=== PATIENT | female | born 1980 | race African-American/Black ===

== ENCOUNTER 2019-05-05 13:16 | Outpatient (CLI) | payer BC, SELFPAY ==
[2019-05-05 13:50] LABS: Hematocrit 40.5 % (37.0-47.0); Hemoglobin 13.2 g/dL (12.0-15.0)
== END 2019-05-05 13:17 | disposition home or self-care (01) ==
LOC: ANHSURGERY 13:18
PROVIDERS: PCP Internal Medicine; Visit Provider Obstetrics & Gynecology
DX: N93.9 Abnormal uterine and vaginal bleeding, unspecified (principal)
CPT/HCPCS: 36415; 85014; 85018

== ENCOUNTER 2019-05-13 01:06 | Day surgery (SDC) | payer BC, SELFPAY ==
[2019-05-02 09:58] VITALS: BMI 27.4
--- NOTE | 2019-05-11 08:39 | PM.IMHP ---
H&P: HPI History of Present Illness Chief complaint: Heavy Bleeding Narrative: Emerald Gracia is a 38 year old female 3 para 2 who is admitted for hysteroscopy dilatation curettage and Rocio ablation. She has excessive heavy bleeding. She has had negative STD testing. She is status post tubal ligation. Risks and benefits of this procedure reviewed including but not exclusive of , aspiration pneumonia, bleeding, transfusion, infection, perforation injury to bowel, bladder, or ureters, with need for laparotomy she is risk understanding. She had all questions answered. She had all questions answered. She asked to proceed Review of Systems Review of Systems: All systems reviewed & are unremarkable except as noted in HPI and below Meds Home Medications and Allergies Home Medications Medication Instructions Recorded Confirmed Type cyanocobalamin (vitamin B-12) 1,000 mcg PO 3XW 05/02/19 05/02/19 History [Vitamin B-12] Allergies Allergy/AdvReac Type Severity Reaction Status Date / Time No Known Allergies Allergy Unknown Verified 05/02/19 09:58 Exam Const: General: no acute distress Eyes: General: appearance normal, both eyes and all related structures Neck: Neck: supple and no JVD Thyroid: thyroid normal Resp: Effort & Inspection: normal respiratory effort Auscultation: clear to auscultation bilaterally Cardio: Rate: regular rate Rhythm: regular rhythm GI: Inspection: non-distended GI Palp: Yes Soft to palpation, No Tenderness to palpation present (GI) and No Guarding due to palpation present (GI) Auscultation: normal bowel sounds : General: Yes bladder normal to palpation External Female Exam: normal external appearance Speculum Exam - Vagina: normal vaginal discharge and No vaginal bleeding Speculum Exam - Cervix: nontender Bimanual exam- vagina & uterus: bladder normal to palpation and No Cervical tenderness present OB/external & speculum: No vaginal bleeding Skin: General skin exam: no rashes or lesions noted Extrem: General: normal to inspection and no edema Psych: Mental Status: mental status grossly normal Affect: normal affect Assessment and Plan Additional Plan impression: Excessive heavy bleeding in a patient status post tubal ligation Plan, hysteroscopy, dilatation curettage, but nerve ablation
[2019-05-13] MEDS: LACTATED RINGERS 1,000 ML 30 ML IV CONT (06:40)
[2019-05-13 06:55] VITALS: BP 117/82; PULSE 62; RESP 18; TEMP 36.1; O2SAT 99
--- NOTE | 2019-05-13 06:57 | WPDHPUPDATE1 ---
History and Physical Update Update Date/Time: 05/13/19 06:57 History and Physical has been reviewed, including an updated exam of the patient. There are NO changes in the patient's condition. Risks, benefits, and alternatives have been discussed and questions answered. Patient agrees to proceed with procedure.
--- NOTE | 2019-05-13 07:01 | P.PNAN_ITS ---
Anes - Initial Pre Proc Eval Procedure: Operation Date: 05/13/19 07:30 Proposed Procedures p Hysteroscopy, Dilation and Curettage, Rocio Endometrial Ablation - Calixto Hand MD Date/Time: 05/13/19 07:01 Surgeon: Calixto Hand MD Pre Op Diagnosis: Heavy Bleeding Patient Data Age: 38 Gender: F Height: 1.57 m Weight: 70 kg Last Vital Signs Temp 36.1 C L 05/13/19 06:55 Pulse 62 05/13/19 06:55 Resp 18 05/13/19 06:55 BP 117/82 05/13/19 06:55 Pulse Ox 99 05/13/19 06:55 Allergies Allergy/AdvReac Type Severity Reaction Status Date / Time No Known Allergies Allergy Unknown Verified 05/02/19 09:58 Home Medications Medication Instructions Recorded Confirmed Type cyanocobalamin (vitamin B-12) 1,000 mcg PO 3XW 05/02/19 05/02/19 History [Vitamin B-12] hydrocodone-acetaminophen [[place]] 1 tablet PO Q4H PRN #20 tablet 05/13/19 Rx Patient hx anesthesia problems: none Family hx anesthesia problems: none Anes - Eval Final PreProcedure Day of Procedure 05/13/19 07:01 Patient weight: overweight Heart: regular rate and rhythm Lungs: clear to auscultation and normal air movement Airway: Mallampati scale class II Neurological: alert and oriented Last oral intake: >/= 8 hours ASA classification: II Emergent: no Anesthetic plan: proceed Anesthesia type and monitoring: general GIVS Informed Consent: The patient's anesthetic plan and its attendant risks and benefits were discussed with the patient/family/POA. Questions were solicited and answers provided to the satisfaction of the patient/family/POA.
--- NOTE | 2019-05-13 07:18 | WPDHPUPDATE1 ---
History and Physical Update Update Date/Time: 05/13/19 07:18 History and Physical has been reviewed, including an updated exam of the patient. There are NO changes in the patient's condition. Risks, benefits, and alternatives have been discussed and questions answered. Patient agrees to proceed with procedure. should read Rocio ablation
[2019-05-13] MEDS: KETOROLAC 30 MG/ML VIAL (*BKC) IV PUSH (08:02)
--- NOTE | 2019-05-13 08:06 | PM.PROC ---
Procedure Note - Detailed Date of procedure: 05/13/19 Pre-op diagnosis: Heavy Bleeding Surgeon: Calixto Hand MD Postop diagnosis: Heavy bleeding refractory to medical therapy Procedure: Hysteroscopy, dilatation curettage, endometrial ablation with renny instrument Anesthesia: IV sedation and local EBL: 5cc Findings: Thick endometrial tissue. No other pathologic findings Complications: None description of procedure: The patient was prepped and draped in the normal sterile fashion and placed in the dorsal lithotomy position. Under excellent IV sedation weighted speculum was placed in posterior fornix of vagina. Anterior lip of the cervix grasped with single-tooth tenaculum 2.5cc of 1% xylocaine anesthesia then placed 2 4 and 8:00 a.m. respectively in the cervix. Uterus sounded to 8cm. Serial dilatation with fragmented dilators performed following patches of the 5mm visualizing hysteroscope. Normal saline was used as visualizing medium. Thick endometrial tissue was seen each fallopian tube os could be seen. No abnormalities were seen short of thickened tissue. The uterus was then scraped over the entire 360? until a good grating sound was heard. The ablated instrument was placed in the uterus. It was burned 120seconds. It was removed. The hysteroscope was inserted and a good burn was noted. Photo documentation was undertaken. The lower sites all removed. The patient was awakened. All sponge, needle, instrument counts were correct. There were no immediate complications
[2019-05-13 08:09] VITALS: BP 129/83; PULSE 83; RESP 14; O2SAT 100
[2019-05-13 08:30] VITALS: BP 127/74; PULSE 76; RESP 14
[2019-05-13 09:00] VITALS: BP 135/93; PULSE 59; RESP 14
== END 2019-05-13 09:05 | disposition home or self-care (01) ==
PROVIDERS: PCP Internal Medicine; Visit Provider Obstetrics & Gynecology
PROC: 0U5B8ZZ Destruction of Endometrium, Via Natural or Artificial Opening Endoscopic (ICD-10-PCS; CPT 58563; principal; 2019-05-13 07:30)
DX: N87.1 Moderate cervical dysplasia (principal)
CPT/HCPCS: 58563; 88305; A9270; J1100; J1885; J2250; J2405; J2704; J3010; J7030; J7120

== ENCOUNTER 2019-06-03 00:30 | Day surgery (SDC) | payer BC, SELFPAY ==
[2019-05-26 14:47] VITALS: BMI 28.3
--- NOTE | 2019-06-01 07:43 | PM.IMHP ---
H&P: HPI History of Present Illness Chief complaint: abn uterine bleeding, higrade dysplasia Narrative: Emerald Gracia is a 38 year old female Was admitted for robotic total vaginal hysterectomy and bilateral salpingectomy. She has markedly enlarged uterus with multiple fibroids. She has been bleeding for 9 weeks this is continued despite medical therapy. Risks and benefits of procedure reviewed Review of Systems Review of Systems: All systems reviewed & are unremarkable except as noted in HPI and below Meds Home Medications and Allergies Home Medications Medication Instructions Recorded Confirmed Type cyanocobalamin (vitamin B-12) 1,000 mcg PO 3XW 05/02/19 05/26/19 History [Vitamin B-12] Allergies Allergy/AdvReac Type Severity Reaction Status Date / Time No Known Allergies Allergy Unknown Verified 05/26/19 14:47 Exam Const: General: no acute distress Eyes: General: appearance normal, both eyes and all related structures Neck: Neck: supple and no JVD Thyroid: thyroid normal Resp: Effort & Inspection: normal respiratory effort Auscultation: clear to auscultation bilaterally Cardio: Rate: regular rate Rhythm: regular rhythm GI: Inspection: non-distended GI Palp: Yes Soft to palpation, No Tenderness to palpation present (GI) and No Guarding due to palpation present (GI) Auscultation: normal bowel sounds : General: Yes other ( uterus was 12 weeks in size.) Skin: General skin exam: no rashes or lesions noted Extrem: General: normal to inspection and no edema Psych: Mental Status: mental status grossly normal Affect: normal affect Assessment and Plan Additional Plan Impression: Symptomatic uterine fibroids a patient with continuous bleeding despite medical therapy Plan: Robotic total vaginal hyst and bilateral salpingectomies
[2019-06-03] VITALS (15 sets, daily range): BP systolic 108–130; BP diastolic 62–76; PULSE 55–85; RESP 11–21; TEMP 36.3–37.2; O2SAT 96–100
--- NOTE | 2019-06-03 06:44 | WPDHPUPDATE1 ---
History and Physical Update Update Date/Time: 06/03/19 06:44 History and Physical has been reviewed, including an updated exam of the patient. There are NO changes in the patient's condition. Risks, benefits, and alternatives have been discussed and questions answered. Patient agrees to proceed with procedure.
--- NOTE | 2019-06-03 07:15 | P.PNAN_ITS ---
Anes - Initial Pre Proc Eval Procedure: Operation Date: 06/03/19 07:30 Proposed Procedures p Robotic Assisted Total Vaginal Hysterectomy with Bilateral Salpingectomy - Calixto Hand MD Date/Time: 06/03/19 07:15 Surgeon: Calixto Hand MD Pre Op Diagnosis: abn uterine bleeding, higrade dysplasia Patient Data Age: 38 Gender: F Height: 5 ft 2 in Weight: 70.31 kg Allergies Allergy/AdvReac Type Severity Reaction Status Date / Time No Known Allergies Allergy Unknown Verified 05/26/19 14:47 Home Medications Medication Instructions Recorded Confirmed Type cyanocobalamin (vitamin B-12) 1,000 mcg PO 3XW 05/02/19 05/26/19 History [Vitamin B-12] hydrocodone-acetaminophen [[place]] 1 tablet PO Q4H PRN #30 tablet 06/03/19 Rx Patient hx anesthesia problems: post op nausea/vomiting Family hx anesthesia problems: other (slow to awaken) Anes - Eval Final PreProcedure Day of Procedure 06/03/19 07:15 Patient weight: overweight Heart: regular rate and rhythm Lungs: clear to auscultation Airway: Mallampati scale class II Neurological: alert and oriented Last oral intake: >/= 8 hours ASA classification: II Emergent: no Anesthetic plan: proceed Anesthesia type and monitoring: general ETT and standard monitoring Informed Consent: The patient's anesthetic plan and its attendant risks and benefits were discussed with the patient/family/POA. Questions were solicited and answers provided to the satisfaction of the patient/family/POA.
[2019-06-03] MEDS: LACTATED RINGERS 1,000 ML 30 ML IV CONT ×2 (07:30→09:34)
[2019-06-03 07:45] LABS: Basophils Percent Auto 0.3 % (0.2-1.2); Eosinophils Absolute Auto 0.2 K/mm3 (0-0.3); Eosinophils Percent Auto 2.2 % (0-4.4); Hematocrit 36.4 % (37.0-47.0); Hemoglobin 11.8 g/dL (12.0-15.0); Immature Granulocyte Absolute 0.03 K/mm3 (0.00-0.031); Immature Granulocyte Percent A 0.4 % (0-0.5); Lymphocytes Absolute Auto 1.79 K/mm3 (0.9-3.2); Lymphocytes Percent Auto 24.9 % (18.3-44.2); Mean Corpuscular HGB Conc 32.4 g/dl (32-36); Mean Corpuscular Hemoglobin 29.3 pg (26-34); Mean Corpuscular Volume 90.3 fl (80-100); Mean Platelet Volume 10.6 fl (7.4-10.4); Monocytes Absolute Auto 0.6 K/mm3 (0.1-0.6); Monocytes Percent Auto 8.5 % (2.6-8.5); Neutrophils Absolute Auto 4.6 K/mm3 (1.3-6.7); Neutrophils Percent Auto 63.7 % (45.5-73.1); Platelet Count Result 268 k/mm3 (150-375); Red Blood Count 4.03 M/mm3 (4.2-5.4); Red Cell Distribution Width 12.4 % (11.5-14.5); White Blood Count 7.2 K/mm3 (4.5-10.0)
[2019-06-03] MEDS: SCOPOLAMINE 1.5 MG PATCH TRANSDERM (07:52)
[2019-06-03] MEDS: ceFAZolin 2 GM/D5W 50 ML 2 GM/50 ML BAG IVPB (07:54)
--- NOTE | 2019-06-03 09:11 | SUR.OPER ---
Ebl=50ml
--- NOTE | 2019-06-03 09:22 | PM.PROC ---
Procedure Note - Detailed Date of procedure: 06/03/19 Pre-op diagnosis: abn uterine bleeding, higrade dysplasia Surgeon: Calixto Hand MD Postop diagnosis: Abnormal uterine bleeding/high-grade dysplasia Procedure: Robotic total vaginal hysterectomy and bilateral salpingectomy Anesthesia: General endotracheal EBL: 50cc Findings: An enlarged uterus. Tubes status post tubal ligation. Normal-appearing ovaries Complications: None Description of procedure: The patient was prepped and draped in the normal sterile fashion placed in the dorsal lithotomy position. Under excellent general endotracheal anesthesia weighted speculum was placed in posterior fornix of vagina. Anterior lip of the cervix grasped with a single-tooth tenaculum. The uterus sounded to8.5cm. Serial dilatation with fragmented dilators performed. This was followed by passage of the number 6 ARAMIS and the 3. And a half cold cup. Next the 16 [place] catheter was placed. The remainder of the instruments removed. The gloves were changed. A supraumbilical incision was made. The Veress needle passed in the abdomen. Abdomen filled with CO2 gas [id number]. The 8mm trocar was advanced in the abdomen. The downside was visualized. No injury seen the patient placed in Trendelenburg. Right and left lateral quadrant incisions were made. The 8mm trocars were advanced under direct visualization assuring no injury. A right upper quadrant incision made. The 10mm trocar was advanced under direct visualization assuring no injury. The robot was docked. The console was then attended to. The left round ligament was grasped, burned, cut. Anterior bladder flap was formed by sharply dissecting the bladder clot caudally from the uterus to the opposite round ligament which was clamped, burned, cut. Next the left ovary was skeletonized from the fallopian tube. The fallopian tube was then removed. In like fashion the right fallopian tube was dissected away from the ovary the adnexal complex. Next the left utero-ovarian ligament was skeletonized to conserve the left ovary. This was clamped, burned, cut. This was brought to level the previously cut round ligament. In like fashion conserving the right ovary the utero-ovarian ligament was clamped, burned, cut and brought to the level of the previously cut round ligament there. The left cardinal and broad ligaments were then serially skeletonized down the lateral edge of the uterus clamped, burned, cut until the uterine vessels could be seen these were large and tortuous as to be expected with the uterus of the size. They were individually clamped cut and burned. This was repeated on the contralateral side by serially clamping burning and cutting the cardinal and broad ligaments to until the uterine vessels on the right could be seen these were then serially clamped, burned, cut. Blanching the uterus was seen. A colpotomy incision was made in the cervix uterus and tubes were removed through the vagina. Blood loss was estimated [id number]. The vagina was closed with continuous running 0V lock from lateral edge to lateral edge. Irrigation was undertaken to clear hemostasis was assured. The robot was undocked. The gas removed from the abdomen. The incisions were closed with 4 O Monocryl and glue. All sponge, needle, instrument counts were correct. There were no immediate complications
[2019-06-03] MEDS: HYDROMORPHONE HCL 1 MG/ML INJ 0.5 MG IV PUSH ×3 (10:05→10:35)
[2019-06-03] MEDS: ONDANSETRON INJ 4 MG/2 ML VIAL IV PUSH ×2 (10:07→18:40)
[2019-06-03] MEDS: DEXTROSE 5%/LACTATED RINGERS 1,000 ML 125 ML IV CONT ×2 (11:32→20:00)
[2019-06-03] MEDS: KETOROLAC 30 MG/ML VIAL (*BKC) IV PUSH (11:32)
--- NOTE | 2019-06-03 11:45 | PC.NURSE ---
1055-This patient, Emerald Gracia, was admitted to OB 2nd Floor Room 289-00. Patient/family oriented to hospital policies and general routines including ID bracelet, bed and alarms, visiting hours, pain management, procedures, bathroom and other care routines, personal items, smoking policy, room service/diet, and visiting hours. Valuables list has been completed. Information on how to activate the Rapid Response Team has been discussed. Patient/Family are encouraged to report perceived risks to care and to ask questions if they do not understand what they are told or what they should do.
[2019-06-03] MEDS: MORPHINE SULFATE 4 MG/ML INJ IV PUSH (13:37)
[2019-06-03] MEDS: DOCUSATE SODIUM 100 MG CAPSULE PO (17:25)
[2019-06-03] MEDS: IBUPROFEN 600 MG TABLET PO (17:25)
[2019-06-04 04:30] VITALS: BP 109/58; PULSE 76; RESP 16; TEMP 37.1
[2019-06-04] MEDS: IBUPROFEN 600 MG TABLET PO ×2 (04:38→10:14)
[2019-06-04] MEDS: SIMETHICONE 80 MG TAB.CHEW PO ×3 (04:38→15:10)
[2019-06-04 05:52] LABS: Basophils Percent Auto 0.1 % (0.2-1.2); Eosinophils Percent Auto 0.1 % (0-4.4); Hemoglobin 11.6 g/dL (12.0-15.0); Immature Granulocyte Absolute 0.07 K/mm3 (0.00-0.031); Immature Granulocyte Percent A 0.5 % (0-0.5); Lymphocytes Absolute Auto 1.43 K/mm3 (0.9-3.2); Lymphocytes Percent Auto 9.9 % (18.3-44.2); Mean Corpuscular HGB Conc 34.1 g/dl (32-36); Mean Corpuscular Hemoglobin 30.1 pg (26-34); Mean Corpuscular Volume 88.3 fl (80-100); Mean Platelet Volume 11.1 fl (7.4-10.4); Monocytes Absolute Auto 1.1 K/mm3 (0.1-0.6); Monocytes Percent Auto 7.9 % (2.6-8.5); Neutrophils Absolute Auto 11.8 K/mm3 (1.3-6.7); Neutrophils Percent Auto 81.5 % (45.5-73.1); Platelet Count Result 268 k/mm3 (150-375); Red Blood Count 3.85 M/mm3 (4.2-5.4); White Blood Count 14.5 K/mm3 (4.5-10.0)
[2019-06-04 08:30] VITALS: BP 98/49; PULSE 63; RESP 16; TEMP 36.8; O2SAT 100
[2019-06-04] MEDS: ENOXAPARIN 40 MG/0.4 ML SYRINGE SUB-Q (08:47)
[2019-06-04] MEDS: DOCUSATE SODIUM 100 MG CAPSULE PO (08:47)
--- NOTE | 2019-06-04 10:03 | WPDANESPN ---
Anes - Prog Note Post-Op Date/Time: 06/04/19 10:03 Cardiovascular status: normal Respiratory status: normal Airway patency: baseline Mental status: baseline Post-Op hydration status: normal Vital Signs: Last Vital Signs Temp 37.1 C 06/04/19 04:30 Pulse 76 06/04/19 04:30 Resp 16 06/04/19 04:30 BP 109/58 L 06/04/19 04:30 Pulse Ox 100 06/03/19 14:00 I/O: Intake & Output 06/03/19 06/04/19 06/04/19 23:59 07:59 15:59 Intake Total 1540 1000 Output Total 550 2700 Balance 990 -1700 Laboratory Tests 06/04/19 04:43 06/04/19 04:43 WBC 14.5 H RBC 3.85 L Hgb 11.6 L Hct 34.0 L MCV 88.3 MCH 30.1 MCHC 34.1 RDW 12.0 Plt Count 268 MPV 11.1 H Immature Gran % (Auto) 0.5 Neut % (Auto) 81.5 H Lymph % (Auto) 9.9 L [place] % (Auto) 7.9 Eos % (Auto) 0.1 Baso % (Auto) 0.1 L Lymph # (Auto) 1.43 [place] # (Auto) 1.1 H Eos # (Auto) 0.0 Baso # (Auto) 0.0 Abs Immat Gran (auto) 0.07 H Absolute Neuts (auto) 11.8 H Absolute Nucleated RBC 0.0 Nucleated RBC % 0.0 Post-procedural complaints: none Patient Feedback: Patient satisfied with anesthetic care.
--- NOTE | 2019-06-04 11:26 | PM.GYNPNOP ---
DANCE CHOREOGRAPHER - A/P Postoperative Procedures: Procedures Operation Date: 06/03/19 07:30 Actual Procedures Side Surgeon p Robotic Assisted Total Vaginal Hysterectomy with Bilateral Salpingectomy Bilateral Calixto Hand MD A: POD#1, doing well. P: Home to f/u 2 weeks. Time Spent With Patient Time with patient: less than 15 minutes DANCE CHOREOGRAPHER- PN:Subj Post-Op Subjective Date/time seen: 06/04/19 11:26 Interval history: Pain OK. A little nauseated, but tolerating diet. Wants to go home. Voiding. Exam Psych: Other: AVSS I/O OK ABD soft, nontender. Incisions c/d/i. EXT nontender DANCE CHOREOGRAPHER - PN: Obj Data Vital Signs Vital Signs: Vital Signs - 24 hr 06/03/19 11:30 06/03/19 12:00 06/03/19 13:00 Temperature Pulse Rate 70 76 78 Respiratory Rate 16 16 16 Blood Pressure 108/66 110/62 109/70 Pulse Oximetry 100 100 100 06/03/19 14:00 06/03/19 18:42 06/03/19 23:05 Temperature 36.9 C 37.2 C 37.1 C Pulse Rate 81 85 82 Respiratory Rate 16 16 16 Blood Pressure 112/63 112/64 115/67 Pulse Oximetry 100 06/04/19 04:30 Temperature 37.1 C Pulse Rate 76 Respiratory Rate 16 Blood Pressure 109/58 L Pulse Oximetry Intake/Output Intake/Output: Intake & Output 06/01/19 06/02/19 06/03/19 06/04/19 23:59 23:59 23:59 23:59 Intake Total 1989 1000 Output Total 995 2700 Balance 995 -1700 Meds/Results Medications: Active Medications Generic Name Dose Route Start Last Admin Trade Name Freq PRN Reason Stop Dose Admin Hydrocodone Bitart/Acetaminophen 1 tab 06/03/19 10:49 06/04/19 10:15 [place] 5-325 Mg PO 1 tab Q3H PRN Administration Pain Rated 5 or Less Hydrocodone Bitart/Acetaminophen 1 tab 06/03/19 10:49 06/04/19 04:39 [place] 10-325 Mg PO 1 tab Q3H PRN Administration Pain Rated 6 or Greater Docusate Sodium 100 mg 06/03/19 17:00 06/04/19 08:47 Colace Capsule PO 100 mg BID ROMEO Administration Enoxaparin Sodium 40 mg 06/04/19 09:00 06/04/19 08:47 Lovenox SUB-Q 40 mg DAILY ROMEO Administration Ibuprofen 600 mg 06/03/19 10:49 06/04/19 10:14 Motrin PO 600 mg Q6H PRN Administration Cramping Ketorolac Tromethamine 30 mg 06/03/19 10:49 06/03/19 11:32 Toradol Inj IV PUSH 06/08/19 10:50 30 mg Q6H PRN Administration Pain Rated 4-6 Morphine Sulfate 4 mg 06/03/19 10:49 06/03/19 13:37 Morphine Sulfate Inj IV PUSH 4 mg Q4H PRN Administration Severe breakthrough pain Naloxone HCl 0.1 mg 06/03/19 10:49 Narcan IV PUSH Q2M PRN Respiratory rate less than 10 Ondansetron HCl 4 mg 06/03/19 10:49 06/03/19 18:40 Zofran Inj IV PUSH 4 mg Q6H PRN Administration Nausea And Vomiting Simethicone 80 mg 06/03/19 10:49 06/04/19 10:16 Mylicon PO 80 mg Q2H PRN Administration Gas Labs CBC & Chem 7: 06/04/19 04:43 Labs: Laboratory Results - last 24 hr 06/04/19 04:43 WBC 14.5 H RBC 3.85 L Hgb 11.6 L Hct 34.0 L MCV 88.3 MCH 30.1 MCHC 34.1 RDW 12.0 Plt Count 268 MPV 11.1 H Immature Gran % (Auto) 0.5 Neut % (Auto) 81.5 H Lymph % (Auto) 9.9 L [place] % (Auto) 7.9 Eos % (Auto) 0.1 Baso % (Auto) 0.1 L Lymph # (Auto) 1.43 [place] # (Auto) 1.1 H Eos # (Auto) 0.0 Baso # (Auto) 0.0 Abs Immat Gran (auto) 0.07 H Absolute Neuts (auto) 11.8 H Absolute Nucleated RBC 0.0 Nucleated RBC % 0.0
--- NOTE | 2019-06-04 11:27 | P.DS_ITS ---
DS: Diagnosis Admitting Diagnosis Admitting Diagnosis: Abnormal uterine and vaginal bleeding, unspecified Discharge Diagnosis (1) Menometrorrhagia: Code(s): N92.1 - Excessive and frequent menstruation with irregular cycle Status: Acute DS: Summary Time Spent with Patient Time attestation: Total time spent providing and/or coordinating discharge services: DS: Data Data Completed and Pending Pending studies at discharge: Pending at discharge 06/03/19 08:54 Surgical [PTH] Routine Labs on day of discharge: Labs from last 24 hours 06/04/19 04:43 WBC 14.5 H RBC 3.85 L Hgb 11.6 L Hct 34.0 L MCV 88.3 MCH 30.1 MCHC 34.1 RDW 12.0 Plt Count 268 MPV 11.1 H Immature Gran % (Auto) 0.5 Neut % (Auto) 81.5 H Lymph % (Auto) 9.9 L [place] % (Auto) 7.9 Eos % (Auto) 0.1 Baso % (Auto) 0.1 L Lymph # (Auto) 1.43 [place] # (Auto) 1.1 H Eos # (Auto) 0.0 Baso # (Auto) 0.0 Abs Immat Gran (auto) 0.07 H Absolute Neuts (auto) 11.8 H Absolute Nucleated RBC 0.0 Nucleated RBC % 0.0 Discharge Plan Discharge Patient Disposition: Home, Self-Care Discharge Instructions: Call or return if temperature above 100.4? F, increased abdominal pain, increased vaginal bleeding or any new problems. Stand Alone Forms: General Discharge Instructions Follow-up/Referrals: Calixto Hand MD [Physician] - (2 weeks) Discharge Medications: New hydrocodone-acetaminophen [[place]] 5-325 mg tablet 1 tablet PO Q4H PRN (Reason: pain) Qty: 30 RF: 0 No Action cyanocobalamin (vitamin B-12) [Vitamin B-12] 1,000 mcg Tablet 1,000 mcg PO 3XW RF: 0 Other Ambulatory Orders: Complete Blood Count with Diff (Routine) Timeframe: 3 Months Location: Determined by Patient Ordered By: Calixto Hand Type and Screen 14 Day (Routine) Timeframe: 3 Months Location: Determined by Patient Ordered By: Calixto Hand Primary Care Provider: Tomas Grubbs Attending physician on admission: Calixto Hand
== END 2019-06-04 15:12 | disposition home or self-care (01) ==
LOC: ANHSURGERY 06:52 → ANHOB2 10:52
PROVIDERS: PCP Internal Medicine; Visit Provider Obstetrics & Gynecology
PROC: (CPT 58552; principal; 2019-06-03 07:30)
DX: N92.1 Excessive and frequent menstruation with irregular cycle (principal); N80.0 Endometriosis of uterus; N83.8 Other noninflammatory disorders of ovary, fallopian tube and broad ligament; N72 Inflammatory disease of cervix uteri
CPT/HCPCS: 58552; S2900; 36415; 85025; 86850; 86900; 86901; 88307; 99199; A9270; J0131; J0690; J1100; J1170; J1650; J1885; J2250; J2270; J2405; J2704; J3010; J7030; J7120; J7121

== ENCOUNTER 2019-11-30 09:09 | Outpatient (CLI) | payer BC, SELFPAY ==
[2019-11-30 09:22] LABS: Basophils Percent Auto 0.4 % (0.2-1.2); Eosinophils Absolute Auto 0.2 K/mm3 (0-0.3); Eosinophils Percent Auto 2.2 % (0-4.4); Hematocrit 38.4 % (37.0-47.0); Hemoglobin 12.8 g/dL (12.0-15.0); Immature Granulocyte Absolute 0.03 K/mm3 (0.00-0.031); Immature Granulocyte Percent A 0.4 % (0-0.5); Lymphocytes Absolute Auto 2.18 K/mm3 (0.9-3.2); Lymphocytes Percent Auto 30.2 % (18.3-44.2); Mean Corpuscular HGB Conc 33.3 g/dl (32-36); Mean Corpuscular Hemoglobin 30.8 pg (26-34); Mean Corpuscular Volume 92.5 fl (80-100); Mean Platelet Volume 10.4 fl (7.4-10.4); Monocytes Absolute Auto 0.6 K/mm3 (0.1-0.6); Monocytes Percent Auto 8.2 % (2.6-8.5); Neutrophils Absolute Auto 4.2 K/mm3 (1.3-6.7); Neutrophils Percent Auto 58.6 % (45.5-73.1); Platelet Count Result 259 k/mm3 (150-375); Red Blood Count 4.15 M/mm3 (4.2-5.4); Red Cell Distribution Width 12.9 % (11.5-14.5); White Blood Count 7.2 K/mm3 (4.5-10.0)
[2019-11-30 09:36] LABS: Alanine Aminotransferase 20 U/L (4-35); Albumin Level 4.3 g/dL (3.5-5.1); Alkaline Phosphatase 48 U/L (38-126); Anion Gap 4 mmol/L (8-16); Aspartate Amino Transferase 31 U/L (14-36); Bilirubin,Total 1.4 mg/dL (0.2-1.3); Blood Urea Nitrogen 10 mg/dL (7-17); Calcium 9.2 mg/dL (8.4-10.2); Carbon Dioxide 28 mmol/L (22-30); Chloride 102 mmol/L (98-107); Cholesterol 198 mg/dL (0-200); Estimated Glomerular Filt Rate > 60; Glucose 79 mg/dL (65-105); HDL Direct 83 mg/dL; Sodium 134 mmol/L (137-145); Triglycerides 35 mg/dL (<150)
[2019-11-30 09:47] LABS: LDL Cholesterol Direct 92 mg/dL
== END 2019-11-30 09:10 | disposition home or self-care (01) ==
LOC: ANHLAB 09:11
PROVIDERS: PCP Internal Medicine; Visit Provider Nurse Practitioner
DX: Z13.228 Encounter for screening for other metabolic disorders (principal); Z13.220 Encounter for screening for lipoid disorders
CPT/HCPCS: 36415; 80053; 80061; 85025

== ENCOUNTER 2020-01-25 11:38 | Outpatient (CLI) | payer BC, SELFPAY ==
--- NOTE | ~2020-01-25 | MM_ITS ---
EXAMINATION: MM screening lisa BI w xiomara HISTORY: Baseline screening mammogram, family history of malignant neoplasm of the breast TECHNIQUE: Craniocaudal and mediolateral oblique 3-D tomosynthesis images were obtained and synthetic 2-D images were generated. CAD analysis was submitted and interpreted. COMPARISON: None, baseline BREAST PARENCHYMAL COMPOSITION: There are scattered areas of fibroglandular density. FINDINGS: RIGHT BREAST: There is no evidence of suspicious mass, calcification, or architectural distortion to suggest malignancy. LEFT BREAST: A mass is present in the subareolar aspect of the breast. IMPRESSION: 1. Left breast mass 2. Additional mammographic views and possible breast ultrasound are recommended. BI-RADS Category 0: Incomplete: Needs additional imaging evaluation. Reviewed, dictated and finalized at location A. EL DEPARTMENT MANAGER IMPRESSION: 1. Left breast mass 2. Additional mammographic views and possible breast ultrasound are recommended . BI-RADS Category 0: Incomplete: Needs additional imaging evaluation.
== END 2020-01-25 11:39 | disposition home or self-care (01) ==
LOC: ANHIMG 11:40
PROVIDERS: PCP Internal Medicine; Visit Provider Nurse Practitioner
DX: Z12.31 Encounter for screening mammogram for malignant neoplasm of breast (principal); R92.8 Other abnormal and inconclusive findings on diagnostic imaging of breast
CPT/HCPCS: 77063; 77067

== ENCOUNTER 2020-02-20 11:36 | Outpatient (CLI) | payer BC, SELFPAY ==
--- NOTE | ~2020-02-20 | MMUS_ITS ---
EXAMINATION: MM diagnostic lisa LT w xiomara, US breast LT limited HISTORY: Left breast mass on screening mammogram TECHNIQUE: Additional 3-D tomosynthesis images of the left breast were performed and synthetic 2-D im ages were generated. CAD analysis was submitted and interpreted. High resolution limited left breast ultrasound was performed. COMPARISON: 01/25/2020 FINDINGS: MAMMOGRAPHIC FINDINGS: There is an approximately 1.3 cm obscured, oval, equal density mass in the subareolar aspect of the b reast. There are grouped calcifications in the subareolar aspect of the breast, some of which appear to be amorphous with layering on the mediolateral view and some possibly coarse heterogeneous in morp hology. No suspicious architectural distortion is identified. ULTRASOUND: There is an approximately 1.3 x 0.9 cm cyst at the 12:00 location 2 cm from the nipple corresponding to the mammographically identified mass. Adjacent smaller subareolar cysts measuring up to 6 mm are n oted. IMPRESSION: 1. Subareolar cyst of the left breast corresponding to the abnormality identified on screening mammog kaylee. Grouped calcifications which are probably benign. 2. Recommend 6 month follow-up left diagnostic mammogram for probably benign calcifications. BI-RADS category 3, probably benign findings. Reviewed, dictated and finalized at location A. [employer] IMPRESSION: 1. Subareolar cyst of the left breast corresponding to the abnormality identifi ed on screening mammogram. Grouped calcifications which are probably benign. 2. Recommend 6 month follow-up left diagnostic mammogram for probably benign ca lcifications. BI-RADS category 3, probably benign findings.
== END 2020-02-20 11:37 | disposition home or self-care (01) ==
LOC: ANHIMG 11:36
PROVIDERS: PCP Internal Medicine; Visit Provider Nurse Practitioner
DX: N63.20 Unspecified lump in the left breast, unspecified quadrant (principal); R92.8 Other abnormal and inconclusive findings on diagnostic imaging of breast
CPT/HCPCS: 76642; 77061; 77065; G0279

== ENCOUNTER 2020-11-05 12:29 | Outpatient (CLI) | payer BC, SELFPAY ==
--- NOTE | ~2020-11-05 | MM_ITS ---
EXAMINATION: MM diagnostic lisa LT w xiomara HISTORY: Follow-up left breast calcifications TECHNIQUE: Additional 3-D tomosynthesis images of the left breast were performed and synthetic 2-D im ages were generated. CAD analysis was submitted and interpreted. COMPARISON: Comparison to multiple prior studies sequentially, with oldest reviewed study dated 01/07. BREAST PARENCHYMAL COMPOSITION: Breast composed of scattered areas of fibroglandular density. FINDINGS: There are clustered calcifications in the upper central aspect of the left breast adjacent to a mass previously characterized as a cyst by ultrasound. A few of the calcifications layer on medi al lateral view, consistent with benign milk of calcium. IMPRESSION: 1. Stable benign-appearing left breast calcifications. 2. Recommend 6 month follow-up diagnostic mammogram. BI-RADS category 3, probably benign findings. Reviewed, dictated and finalized at location A.
== END 2020-11-05 12:30 | disposition home or self-care (01) ==
LOC: ANHIMG 12:31
PROVIDERS: PCP Internal Medicine; Visit Provider Nurse Practitioner
DX: R92.8 Other abnormal and inconclusive findings on diagnostic imaging of breast (principal)
CPT/HCPCS: 77061; 77065; G0279

== ENCOUNTER 2020-12-28 10:09 | Outpatient (CLI) | payer BC, SELFPAY ==
--- NOTE | ~2020-12-28 | CT_ITS ---
EXAMINATION: CT abdomen pelvis w con DATE: 12/28/2020 10:45 INDICATION: Generalized abdominal pain. Blood in stool. TECHNIQUE: Computed tomography (CT) of the abdomen and pelvis was performed with 100 mL Omnipaque 350 intravenous contrast. Automated exposure control and iterative reconstruction technique were employe d. The dose-length product was 428.26 mGy-cm. COMPARISON: None. FINDINGS: The visualized portions of the lung bases demonstrate minimal atelectasis. A calcified left lung nodule is consistent with old granulomatous disease. There is a 4 mm nodule in right lower lobe , likely benign. No pleural effusion. The heart size is normal. No pericardial effusion. There is a 5 mm cyst in the liver. The gallbladder, spleen, pancreas, adrenal glands, and kidneys are normal. The re is a 2.0 cm corpus luteum cyst in left ovary. There are no dilated loops of bowel. The appendix is normal. There are no pathologically enlarged lymph nodes. There is no free intraperitoneal fluid. Th ere is mild thoracolumbar spondylosis. IMPRESSION: 1. No etiology for the patient's symptoms. Reviewed, dictated and finalized at location A.
== END 2020-12-28 10:10 | disposition home or self-care (01) ==
LOC: ANHIMG 10:14
PROVIDERS: PCP Internal Medicine; Visit Provider Clinical Nurse Specialist
DX: R10.9 Unspecified abdominal pain (principal)
CPT/HCPCS: 74177; Q9967

== ENCOUNTER 2021-05-09 01:27 | Day surgery (SDC) | payer BC, SELFPAY ==
[2021-04-26 10:21] VITALS: BMI 29.4
--- NOTE | 2021-05-09 09:05 | WPDANESEPPF ---
Anes - Initial Pre Proc Eval Procedure: Operation Date: 05/09/21 11:15 Proposed Procedures p Esophagogastroduodenoscopy & Colonoscopy - Justo Andrade MD Date/Time: 05/09/21 09:05 Surgeon: Justo Andrade MD Pre Op Diagnosis: epigastric pain, Rectal bleeding Patient Data Age: 40 Gender: F Height: 1.57 m Weight: 73 kg Allergies Allergy/AdvReac Type Severity Reaction Status Date / Time adhesive tape AdvReac Rash Verified 05/09/21 10:20 Home Medications Medication Instructions Recorded Confirmed Type cyanocobalamin (vitamin B-12) See Rx Instructions .ROUTE .COMPLEX 04/26/21 05/09/21 History phentermine 37.5 mg PO DAILY 04/26/21 05/09/21 History topiramate 25 mg PO HS 04/26/21 05/09/21 History Patient hx anesthesia problems: none Family hx anesthesia problems: none Results Review: All pre-operative results and documents have been reviewed as part of the pre-operative evaluation. [facility] Past Medical History Medical History Breast mass, left Family history of breast cancer Herpes TMJ (temporomandibular joint disorder) Surgical History Surgical History (Updated 05/09/21 @ 09:06 by Dany De La Garza DO) History of tonsillectomy History of tubal ligation Hx of hysterectomy, total Family History Family History Sibling Asthma Mother Hypothyroidism Kidney disease Hypertension Sibling Breast cancer Mother Hypertension Family history of hypothyroidism Sibling Asthma Father Family history unknown Social History Social History (Updated 03/25/21 @ 12:57 by Carly Russo CMA) Smoking status: Never smoker Alcohol intake: current Alcohol use details: 3 x/week Substance use: never Substance use type: does not use Living arrangements: with family Spiritual care concerns: No Anes - Eval Final PreProcedure Day of Procedure 05/09/21 09:05 Patient weight: overweight Heart: regular rate and rhythm Lungs: clear to auscultation and normal air movement Airway: Mallampati scale class II Neurological: alert and oriented Last oral intake: >/= 8 hours ASA classification: II Emergent: no Anesthetic plan: proceed Anesthesia type and monitoring: general GIVS and standard monitoring Results Review: All pre-operative results and documents have been reviewed as part of the pre-operative evaluation. Informed Consent: The patient's anesthetic plan and its attendant risks and benefits were discussed with the patient/family/POA. Questions were solicited and answers provided to the satisfaction of the patient/family/POA.
[2021-05-09 10:21] VITALS: BP 126/96; PULSE 91; RESP 17; TEMP 36.5; O2SAT 100; BMI 27.2
[2021-05-09] MEDS: LACTATED RINGERS 1,000 ML 150 ML IV CONT (10:34)
--- NOTE | 2021-05-09 10:49 | PM.HPGS ---
History of Present Illness History of Present Illness Consent: Risks, benefits, and alternatives have been discussed and questions answered. Patient agrees to proceed with procedure. Chief complaint: epigastric pain, Rectal bleeding Narrative: Emerald Gracia is a 40 year old female who is being evaluated for chronic reflux with recent gagging sensation and occasional feeling of difficulty swallowing. She has history of having had H pylori gastritis about 10 years ago. she reports epigastric discomfort that will rise to her mid chest and is worse after having dairy products and worse when lying down. Also, few months ago she had red blood her stools 1 day. She has not had any significant change in bowel habits Review of Systems Review of Systems: All systems reviewed & are unremarkable except as noted in HPI and below PMFSH Past Medical History Medical History Breast mass, left Family history of breast cancer Herpes TMJ (temporomandibular joint disorder) Surgical History Surgical History History of tonsillectomy History of tubal ligation Hx of hysterectomy, total Family History Family History Sibling Asthma Mother Hypothyroidism Kidney disease Hypertension Sibling Breast cancer Mother Hypertension Family history of hypothyroidism Sibling Asthma Father Family history unknown Social History Social History Smoking status: Never smoker Alcohol intake: current Alcohol use details: 3 x/week Substance use: never Substance use type: does not use Living arrangements: with family Spiritual care concerns: No Meds Home Medications and Allergies Home Medications Medication Instructions Recorded Confirmed Type cyanocobalamin (vitamin B-12) See Rx Instructions .ROUTE .COMPLEX 04/26/21 05/09/21 History phentermine 37.5 mg PO DAILY 04/26/21 05/09/21 History topiramate 25 mg PO HS 04/26/21 05/09/21 History Allergies Allergy/AdvReac Type Severity Reaction Status Date / Time adhesive tape AdvReac Rash Verified 05/09/21 10:20 Vital Signs Vital Signs - 24 hr 05/09/21 10:21 Temperature 36.5 C Pulse Rate 91 Respiratory Rate 17 Blood Pressure 126/96 H Pulse Oximetry 100 Exam Const: General: alert Orientation/consciousness: patient oriented x3 Resp: Auscultation: clear to auscultation bilaterally Cardio: Rhythm: regular rhythm GI: GI Palp: Yes Soft to palpation and No Tenderness to palpation present (GI) Neuro: General: patient oriented x3 Assessment and Plan Assessment and plan (1) Melena: Code(s): K92.1 - Melena Status: Acute Assessment and Plan: Colonoscopy with possible biopsy or polypectomy or cautery or injection of substances. (2) GERD (gastroesophageal reflux disease): Code(s): K21.9 - Gastro-esophageal reflux disease without esophagitis Status: Acute Assessment and Plan: EGD with possible biopsy or dilatation or cautery.
--- NOTE | 2021-05-09 11:46 | SUR.OPER ---
EGD ENDED AT 1141, COLONOSCOPY STARTED AT 1148.
[2021-05-09 11:57] VITALS: BP 125/92; PULSE 93; RESP 18; O2SAT 98
[2021-05-09 12:07] VITALS: BP 125/78; PULSE 118; RESP 27; O2SAT 100
[2021-05-09 12:17] VITALS: BP 142/86; PULSE 71; RESP 16; O2SAT 100
== END 2021-05-09 12:21 | disposition home or self-care (01) ==
PROVIDERS: PCP Internal Medicine; Visit Provider Internal Medicine Gastroenterology
PROC: 0DJ08ZZ Inspection of Upper Intestinal Tract, Via Natural or Artificial Opening Endoscopic (ICD-10-PCS; CPT 43235; principal; 2021-05-09 11:15)
DX: K21.9 Gastro-esophageal reflux disease without esophagitis (principal); K92.1 Melena; K29.70 Gastritis, unspecified, without bleeding; R13.12 Dysphagia, oropharyngeal phase; R10.13 Epigastric pain; M26.609 Unspecified temporomandibular joint disorder, unspecified side; K64.8 Other hemorrhoids; Z86.19 Personal history of other infectious and parasitic diseases
CPT/HCPCS: 43239; 45378; 87081; J2704; J7120

== ENCOUNTER 2022-02-06 11:44 | Outpatient (CLI) | payer BC, SELFPAY ==
[2022-02-06 18:58] LABS: Basophils Percent Auto 0.2 % (0.2-1.2); Eosinophils Percent Auto 0.6 % (0-4.4); Hematocrit 40.6 % (37.0-47.0); Hemoglobin 13.1 g/dL (12.0-15.0); Immature Granulocyte Absolute 0.02 K/mm3 (0.00-0.031); Immature Granulocyte Percent A 0.3 % (0-0.5); Lymphocytes Absolute Auto 1.25 K/mm3 (0.9-3.2); Lymphocytes Percent Auto 19.1 % (18.3-44.2); Mean Corpuscular HGB Conc 32.3 g/dl (32-36); Mean Corpuscular Hemoglobin 30.4 pg (26-34); Mean Corpuscular Volume 94.2 fl (80-100); Mean Platelet Volume 10.5 fl (7.4-10.4); Monocytes Absolute Auto 0.5 K/mm3 (0.1-0.6); Monocytes Percent Auto 7.4 % (2.6-8.5); Neutrophils Absolute Auto 4.7 K/mm3 (1.3-6.7); Neutrophils Percent Auto 72.4 % (45.5-73.1); Platelet Count Result 341 k/mm3 (150-375); Red Blood Count 4.31 M/mm3 (4.2-5.4); Red Cell Distribution Width 13.2 % (11.5-14.5); White Blood Count 6.5 K/mm3 (4.5-10.0)
[2022-02-06 19:05] LABS: Alanine Aminotransferase 21 U/L (6-35); Albumin Level 4.6 g/dL (3.5-5.1); Alkaline Phosphatase 50 U/L (38-126); Anion Gap 7 mmol/L (8-16); Aspartate Amino Transferase 90 U/L (14-36); Bilirubin,Total 1.4 mg/dL (0.2-1.3); Blood Urea Nitrogen 9 mg/dL (7-17); Calcium 9.2 mg/dL (8.4-10.2); Carbon Dioxide 26 mmol/L (22-30); Chloride 101 mmol/L (98-107); Cholesterol 220 mg/dL (0-200); Estimated Glomerular Filt Rate > 60; Glucose 80 mg/dL (65-110); HDL Direct 75 mg/dL; Potassium 3.9 mmol/L (3.4-5.0); Sodium 134 mmol/L (137-145); Triglycerides 31 mg/dL (<150)
[2022-02-06 19:16] LABS: LDL Cholesterol Direct 98 mg/dL
== END 2022-02-06 11:45 | disposition home or self-care (01) ==
LOC: ANHGOSHLAB 11:45
PROVIDERS: PCP Internal Medicine; Visit Provider Nurse Practitioner
DX: Z13.29 Encounter for screening for other suspected endocrine disorder (principal); Z13.220 Encounter for screening for lipoid disorders
CPT/HCPCS: 36415; 80053; 80061; 85025

== ENCOUNTER 2022-02-17 12:14 | Outpatient (CLI) | payer BC, SELFPAY ==
--- NOTE | ~2022-02-17 | MMUS_ITS ---
EXAMINATION: MM diagnostic lisa BI w xiomara, US breast LT limited HISTORY: Palpable lump in the left breast TECHNIQUE: Additional 3-D tomosynthesis images of the breasts were performed and synthetic 2-D images were generated. CAD analysis was submitted and interpreted. High resolution Limited left breast ultr asound was performed. COMPARISON: Comparison to multiple prior studies sequentially, with oldest reviewed study dated 01/07. BREAST PARENCHYMAL COMPOSITION: The breasts are heterogeneously dense, which may obscure small masses FINDINGS: MAMMOGRAPHIC FINDINGS: There are no suspicious masses, calcifications or architectural distortion in the right breast to sug gest malignancy. There is a focal asymmetry in the upper central aspect of the left breast with layer ing calcifications. ULTRASOUND: Limited left breast ultrasound: In the area of palpable concern at 12:00, 2 cm from the nipple there is a simple cyst measuring 11 x 10 x 6 mm corresponding to the mammographic and palpable finding. No suspicious sonographic abnormalities to suggest malignancy. IMPRESSION: 1. No evidence for malignancy in either breast. Benign findings. 2. Routine yearly screening mammogram and regular clinical breast examination are recommended. BI-RADS Category 2: Benign finding(s). Reviewed, dictated and finalized at location B. TRONIC PLOTTING SYSTEM OPERATOR IMPRESSION: 1. No evidence for malignancy in either breast. Benign findings. 2. Routine yearly screening mammogram and regular clinical breast examination a re recommended. BI-RADS Category 2: Benign finding(s).
== END 2022-02-17 12:15 | disposition home or self-care (01) ==
LOC: ANHIMG 12:15
PROVIDERS: PCP Internal Medicine; Visit Provider Nurse Practitioner
DX: N63.20 Unspecified lump in the left breast, unspecified quadrant (principal)
CPT/HCPCS: 76642; 77062; 77066; G0279

== ENCOUNTER 2023-02-17 08:30 | Outpatient (CLI) | payer BC, SELFPAY ==
[2023-02-17 12:54] LABS: Basophils Percent Auto 0.3 % (0.2-1.2); Eosinophils Absolute Auto 0.1 K/mm3 (0-0.3); Eosinophils Percent Auto 1.1 % (0-4.4); Hematocrit 38.7 % (37.0-47.0); Hemoglobin 12.3 g/dL (12.0-15.0); Immature Granulocyte Absolute 0.03 K/mm3 (0.00-0.031); Immature Granulocyte Percent A 0.4 % (0-0.5); Lymphocytes Absolute Auto 2.12 K/mm3 (0.9-3.2); Lymphocytes Percent Auto 30.2 % (18.3-44.2); Mean Corpuscular HGB Conc 31.8 g/dl (32-36); Mean Corpuscular Hemoglobin 29.6 pg (26-34); Mean Corpuscular Volume 93.3 fl (80-100); Mean Platelet Volume 10.8 fl (7.4-10.4); Monocytes Absolute Auto 0.6 K/mm3 (0.1-0.6); Monocytes Percent Auto 8.4 % (2.6-8.5); Neutrophils Absolute Auto 4.2 K/mm3 (1.3-6.7); Neutrophils Percent Auto 59.6 % (45.5-73.1); Platelet Count Result 290 k/mm3 (150-375); Red Blood Count 4.15 M/mm3 (4.2-5.4); Red Cell Distribution Width 12.9 % (11.5-14.5)
[2023-02-17 13:20] LABS: Alanine Aminotransferase 18 U/L (6-35); Albumin Level 4.2 g/dL (3.5-5.1); Alkaline Phosphatase 52 U/L (38-126); Anion Gap 6 mmol/L (8-16); Aspartate Amino Transferase 48 U/L (14-36); Bilirubin,Total 1.3 mg/dL (0.2-1.3); Blood Urea Nitrogen 8 mg/dL (7-17); Calcium 9.2 mg/dL (8.4-10.2); Carbon Dioxide 27 mmol/L (22-30); Chloride 103 mmol/L (98-107); Cholesterol 200 mg/dL (0-200); Estimated Glomerular Filt Rate > 60; Glucose 72 mg/dL (65-110); HDL Direct 79 mg/dL; Potassium 3.9 mmol/L (3.4-5.0); Sodium 136 mmol/L (137-145); Triglycerides 35 mg/dL (<150)
[2023-02-17 13:31] LABS: LDL Cholesterol Direct 95 mg/dL
[2023-02-17 13:54] LABS: Vitamin D 25 Hydroxy < 12.8 ng/mL
== END 2023-02-17 08:31 | disposition home or self-care (01) ==
LOC: ANHGOSHLAB 08:32
PROVIDERS: PCP Internal Medicine; Visit Provider Clinical Nurse Specialist
DX: E55.9 Vitamin D deficiency, unspecified (principal); Z13.220 Encounter for screening for lipoid disorders; Z13.29 Encounter for screening for other suspected endocrine disorder
CPT/HCPCS: 36415; 80053; 80061; 82306; 85025

== ENCOUNTER 2023-11-18 13:43 | Outpatient (CLI) | payer BC, SELFPAY ==
--- NOTE | ~2023-11-18 | XR_ITS ---
EXAMINATION: XR_[id number]_CR DATE: 11/18/2023 13:54 INDICATION: Nontraumatic pain at the base of the fifth metatarsal TECHNIQUE: Dorsal plantar, 2 oblique and lateral views of the right foot were obtained. COMPARISON: None. FINDINGS: Bone alignment is normal. No fracture. Joint spaces are normal. No cortical erosions or periosteal re action. Small Achilles calcaneal spur. Soft tissues are unremarkable. IMPRESSION: 1. Small Achilles calcaneal spur. Otherwise unremarkable right foot radiographs. Reviewed, dictated and finalized at location B. IMPRESSION: 1. Small Achilles calcaneal spur. Otherwise unremarkable right foot radiographs .
== END 2023-11-18 13:44 | disposition home or self-care (01) ==
PROVIDERS: PCP Nurse Practitioner; Visit Provider Nurse Practitioner
DX: M79.671 Pain in right foot (principal); M77.31 Calcaneal spur, right foot
CPT/HCPCS: 73630

== ENCOUNTER 2024-01-14 08:23 | Outpatient (CLI) | payer BC, SELFPAY ==
--- NOTE | ~2024-01-14 | MM_ITS ---
EXAMINATION: MM screening lisa BI w xiomara HISTORY: Screening TECHNIQUE: Craniocaudal and mediolateral oblique 3-D tomosynthesis images were obtained and synthetic 2-D images were generated. CAD analysis was submitted and interpreted. COMPARISON: Comparison to multiple prior studies sequentially, with oldest reviewed study dated 01/07. BREAST PARENCHYMAL COMPOSITION: Not dense: There are scattered areas of fibroglandular density. FINDINGS: There is no evidence of suspicious mass, calcification, or architectural distortion to sugg est malignancy in either breast. There has been no suspicious interval change. IMPRESSION: 1. No mammographic evidence of malignancy. 2. Recommend routine screening mammography in one year. BI-RADS Category 1: Negative Reviewed, dictated and finalized at location B. U.S. REPRESENTATIVE
== END 2024-01-14 08:24 | disposition home or self-care (01) ==
PROVIDERS: PCP Internal Medicine; Visit Provider Obstetrics & Gynecology
DX: Z12.31 Encounter for screening mammogram for malignant neoplasm of breast (principal)
CPT/HCPCS: 77063; 77067

== ENCOUNTER 2024-01-14 09:07 | Outpatient (CLI) | payer BC, SELFPAY ==
[2024-01-14 19:04] LABS: Basophils Percent Auto 0.5 % (0.2-1.2); Eosinophils Absolute Auto 0.1 K/mm3 (0-0.3); Eosinophils Percent Auto 1.7 % (0-4.4); Hematocrit 40.3 % (37.0-47.0); Hemoglobin 13.5 g/dL (12.0-15.0); Immature Granulocyte Absolute 0.01 K/mm3 (0.00-0.031); Immature Granulocyte Percent A 0.2 % (0-0.5); Lymphocytes Absolute Auto 1.98 K/mm3 (0.9-3.2); Lymphocytes Percent Auto 32.7 % (18.3-44.2); Mean Corpuscular HGB Conc 33.5 g/dl (32-36); Mean Corpuscular Hemoglobin 31.2 pg (26-34); Mean Corpuscular Volume 93.1 fl (80-100); Mean Platelet Volume 10.9 fl (7.4-10.4); Monocytes Absolute Auto 0.5 K/mm3 (0.1-0.6); Monocytes Percent Auto 7.6 % (2.6-8.5); Neutrophils Absolute Auto 3.5 K/mm3 (1.3-6.7); Neutrophils Percent Auto 57.3 % (45.5-73.1); Platelet Count Result 301 k/mm3 (150-375); Red Blood Count 4.33 M/mm3 (4.2-5.4); Red Cell Distribution Width 12.7 % (11.5-14.5); White Blood Count 6.1 K/mm3 (4.5-10.0)
[2024-01-14 19:21] LABS: Vitamin D 25 Hydroxy 27.3 ng/mL
[2024-01-14 19:29] LABS: LDL Cholesterol Direct 94 mg/dL
[2024-01-14 19:58] LABS: Alanine Aminotransferase 24 U/L (6-35); Albumin Level 4.8 g/dL (3.5-5.1); Alkaline Phosphatase 47 U/L (38-126); Anion Gap 9 mmol/L (4-12); Aspartate Amino Transferase 85 U/L (14-36); Bilirubin,Total 1.7 mg/dL (0.2-1.3); Blood Urea Nitrogen 12 mg/dL (7-17); Calcium 9.6 mg/dL (8.4-10.2); Carbon Dioxide 28 mmol/L (22-30); Chloride 100 mmol/L (98-107); Cholesterol 200 mg/dL (0-200); Estimated Glomerular Filt Rate > 60; Glucose 54 mg/dL (65-110); HDL Direct 81 mg/dL; Potassium 4.4 mmol/L (3.4-5.0); Sodium 137 mmol/L (137-145); Triglycerides < 30 mg/dL (<150)
[2024-01-14 20:29] LABS: Folic Acid > 20.0 ng/mL (2.76->20)
== END 2024-01-14 09:08 | disposition home or self-care (01) ==
LOC: ANHGOSHLAB 09:09
PROVIDERS: PCP Nurse Practitioner; Visit Provider Nurse Practitioner
DX: E53.8 Deficiency of other specified B group vitamins (principal); E55.9 Vitamin D deficiency, unspecified; Z13.220 Encounter for screening for lipoid disorders; Z13.29 Encounter for screening for other suspected endocrine disorder
CPT/HCPCS: 36415; 80053; 80061; 82306; 82607; 82746; 85025

== ENCOUNTER 2024-12-28 14:13 | Outpatient (CLI) | payer BC, SELFPAY ==
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
== END 2024-12-28 14:14 | disposition home or self-care (01) ==
LOC: GOSHIMG 14:13
DX: M25.561 Pain in right knee (principal)
CPT/HCPCS: 73562

== ENCOUNTER 2025-01-05 09:09 | Outpatient (CLI) | payer BC, SELFPAY ==
--- NOTE | ~2025-01-05 | XR_ITS ---
EXAMINATION: XR barium swallow DATE: 01/05/2025 09:56 INDICATION: Gastroesophageal reflux disease without esophagitis TECHNIQUE: The patient drank thick barium, gas-producing crystals, and thin barium. Fluoroscopic spot radiographs of the hypopharynx and esophagus were obtained. A total of 1117 images recorded. Fluoroscopy exposure time was 2.0 minutes. Total DAP was 4.208 mGycm^2. COMPARISON: None. FINDINGS: The pharynx is symmetric and without evidence of mass lesion or mucosal irregularity. The esophagus is normal without mass or stricture. Esophageal motility is normal. There is no hiatal hernia. There was a single episode of gastroesophageal reflux of a small amount of contrast extends cephal ad to the level of the midesophagus with provocative maneuvers. IMPRESSION: 1. Single episode of gastroesophageal reflux with small amount of contrast intervening mid to distal esophagus with provocative maneuvers. Otherwise normal barium swallow study. Reviewed, dictated and finalized at location A. IMPRESSION: 1. Single episode of gastroesophageal reflux with small amount of contrast inte rvening mid to distal esophagus with provocative maneuvers. Otherwise normal ba rium swallow study.
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
--- OUTSIDE RECORDS SUMMARY | 2025-01-05 09:41 | XMS_ITS | Clinical Summary ---
Author Organization [facility] Address [address] [place] [address] Care Team Providers Care Bandmill Operator Name Role Phone Tomas Grubbs DO Primary Care Provider [phone] Source Comments [facility],non-owned Affiliates and Associated Physician Practices is amultiple site organization consisting of ambulatory clinics and hospital sitesin [place], [place], [place] and [place]. This disclosure is being madepursuant to the Care Everywhere program and may not contain all information available regarding this patient. Last updated 17.[facility] Medications * Be aware that medications may not be up to date on this document. Alwaysverify current medications with the patient. clobetasol (TEMOVATE) 0.05 % solution 50 mL 5 04/28/2016 Active doxycycline hyclate (ACTICLATE) 100 MG tablet Take 100 mg by mouth BID. 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 Postinflammatory hyperpigmentation 04/17/2016 Rash and other nonspecific skin eruption 015 Family History Medical History Relation Name Comments Allergy (Severe) Neg Hx CVA Neg Hx Cancer Neg Hx Cancer - Breast Neg Hx Cancer - Skin, Melanoma Neg Hx Cancer - Skin, Non Melanoma Neg Hx Eczema Neg Hx Hemophilia Neg Hx Psoriasis Neg Hx Rashes/Skin Problems Neg Hx Social History Tobacco Use Types Packs/Day Years Used Date Smoking Tobacco: Never Smokeless Tobacco: Never Alcohol Use Standard Drinks/Week Comments Yes 0 (1 standard drink = 0.6 oz pur e alcohol) Comments Unknown Sex and Gender Information Value Date Recorded Sex Assigned at Not on file Legal Sex Female 5:22 PM TEENAGE PROGRAM DIRECTOR Gender Identity Not on file Sexual Orientation Not on file Plan of Treatment Health Maintenance Due Date Last Done Comments LIPID TESTING 1980 MAMMOGRAM 1980 HIV SCREENING 08/03/1995 HEPATITIS C SCREENING 07/29/1998 DTAP/TDAP/TD VACCINES (1 - Tdap) 08/03/1999 HEPATITIS B VACCINE (1 of 3 - 19+ 3-dose series) 08/03/1999 PAP SMEAR 2001 HPV VACCINE (1 - 3-dose SCDM series) 08/03/2007 DEPRESSION SCREENING 03/09/2024 COVID-19 VACCINE (1 - 2023-2 5 season) 2024 INFLUENZA VACCINE (#1) 2024 ZOSTER VACCINE (1 of 2) 2030 HIB VACCINE Aged Out No longer eligi ble based on patient's age to complete this topic MENINGOCOCCAL (Group B) VACC INE SHARED DECISION-MAKING Aged Out No longer eligibl e based on patient's age to complete this topic MENINGOCOCCAL GROUPS A/C/Y/W VACCINE Aged Out No longer eligible b ased on patient's age to complete this topic PNEUMOCOCCAL VACCINE Aged Out No long er eligible based on patient's age to complete this topic Insurance GEN [employer] Care Teams Bandmill Operator Relationship Specialty Start Date End Date Tomas Grubbs DO PCP - General 05/27/13
--- OUTSIDE RECORDS SUMMARY | 2025-01-05 09:42 | XMS_ITS | Encounter Summary ---
Author Organization [employer] Address [address] [place] [address] Care Team Providers Care Operations Manager Station Name Role Phone Tomas Grubbs DO Primary Care Provider Encounter Details Date Type Department Care Team (Late st Contact Info) Description 01/04/2025 External Device Data [facility] Provider, Abstract NO ADDRESS ON FILE Social History Tobacco Use Types Packs/Day Years [...] Sex Assigned at Female 02/17/2024 12:52 PM ELECTRONIC GAMING DEVICE SUPERVISOR Legal Sex Female 3:19 PM CDT Gender Identity Female 02/17/2024 12:52 PM ELECTRONIC GAMING DEVICE SUPERVISOR Sexual Orientation Not on file documented as of this encounter Plan of Treatment Not on file documented as of this encounter Visit Diagnoses Not on filedocumented in this encounter Care Teams Operations Manager Station Relationship Specialty Start Date End Date Tomas Grubbs DO [address] [place] [address] PCP - General Internal Medicine 02/19/24 documented as of this encounter
== END 2025-01-05 09:10 | disposition home or self-care (01) ==
PROVIDERS: PCP Internal Medicine; Visit Provider Otolaryngology Otolaryngology/Facial Plastic Surgery
DX: K21.9 Gastro-esophageal reflux disease without esophagitis (principal)
CPT/HCPCS: 74220

== ENCOUNTER 2025-02-09 12:42 | Outpatient (CLI) | payer BC, SELFPAY ==
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
== END 2025-02-09 12:43 | disposition home or self-care (01) ==
DX: M54.2 Cervicalgia (principal); M54.6 Pain in thoracic spine
CPT/HCPCS: 72040; 72072; 72100